=== PATIENT | male | born 2000 | race Caucasian/White ===

== ENCOUNTER → 2020-07-16 | Outpatient (CLI) | payer BC ==
--- NOTE | 2020-07-17 10:00 | ECHOF ---
Referral Reason:R01.1 cardiac murmur MEASUREMENTS -------- HEIGHT: 175.3 cm WEIGHT: 54.4 kg BP: RVIDd: 2.1 cm (< 3.3) IVSd: 1.1 cm (0.6 - 1.1) LVIDd: 3.6 cm (3.9 - 5.3) LVPWd: 1.0 cm (0.6 - 1.1) IVSs: 1.3 cm LVIDs: 1.9 cm LVPWs: 1.5 cm Ao Diam: 2.1 cm (2.0 - 3.7) AV Cusp: 1.6 cm (1.5 - 2.6) MV EXCURSION: 22.252 mm (> 18.000) MV EF SLOPE: 59 mm/s (70 - 150) EPSS: 0.1 cm MV E Ascencion: 0.87 m/s MV DecT: 162 ms MV A Ascencion: 0.57 m/s MV E/A Ratio: 1.54 RAP: 5.00 mmHg RVSP: 17.51 mmHg FINDINGS -------- Sinus rhythm. This was a technically difficult study with suboptimal apical views. Pt. has a pectus chest. The left ventricular size is normal. Left ventricular wall thickness is normal. Overall left vent ricular systolic function is normal with, an EF between 55 - 60 %. The right ventricle is normal in size. Normal LA size by volume 22+/-6 ml/m2. The right atrium was not well visualized. Interatrial and interventricular septum intact. There is no evidence of aortic regurgitation. There is no evidence of aortic stenosis. Mild mitral regurgitation is present. Mild tricuspid regurgitation present. There is no evidence of pulmonary hypertension. The right v entricular systolic pressure, as measured by Doppler, is 17.51mmHg. There is no pulmonic regurgitation present. The aortic root size is normal. Normal inferior vena cava with normal inspiratory collapse consistent with estimated right atrial pre ssure of 5 mmHg. There is no pericardial effusion. CONCLUSIONS -------- 1. The left ventricular size is normal. 2. Left ventricular wall thickness is normal. 3. Overall left ventricular systolic function is normal with, an EF between 55 - 60 %. 4. Mild mitral regurgitation is present. 5. Mild tricuspid regurgitation present. COMPUTER INSTRUCTOR: Vivien Valladares DIANELYS
== END | disposition home or self-care (01) ==
LOC: RADECHMAIN 11:23
PROVIDERS: ATTEND Family Medicine
DX: I08.1 Rheumatic disorders of both mitral and tricuspid valves (principal)
CPT/HCPCS: 93306

== ENCOUNTER 2022-04-05 21:48 | Emergency (ER) | payer BC ==
[2022-04-05 21:54] VITALS: BP 105/59; PULSE 103; RESP 22; TEMP 99.4
== END 2022-04-06 00:17 | disposition left against medical advice (07) ==
LOC: EC 21:48
DX: Z53.9 Procedure and treatment not carried out, unspecified reason (principal)
CPT/HCPCS: 87635; 99499